=== PATIENT | female | born 1925 | race Caucasian/White ===

== ENCOUNTER 2017-09-23 11:49 | Emergency (ER) | payer MEDICARE, OTHER ==
[~2017-09-23] VITALS: Ht 157.5 cm; Wt 61.4 kg
[2017-09-23 11:52] VITALS: TEMP 98.1
[2017-09-23 12:56] LABS: HEMATOCRIT 44.7 % (37.0-47.0); HEMOGLOBIN 14.3 g/dl (12.5-16.0); MEAN CELL VOLUME 103 fl (80.0-100.0); MEAN CORPUSCULAR HEMOGLOBIN 33 pg (27.0-31.0); MEAN CORPUSCULAR HGB CONC 32 g/dl (33.0-37.0); MEAN PLATELET VOLUME 10.7 fl (7.4-10.4); PLATELET COUNT 205 K/mm3 (130-400); RED BLOOD COUNT 4.35 M/mm3 (4.10-5.30); REDCELL DISTRIBUTION WIDTH-CV 13.9 % (11.5-14.5)
[2017-09-23 13:06] LABS: ALBUMIN 3.8 gm/dL (3.5-5.0); BILIRUBIN,TOTAL 0.7 mg/dL (0.0-1.0); CALCIUM 9.2 mg/dL (8.4-10.2); CREATININE, serum 0.71 mg/dL (0.52-1.25); POTASSIUM 4.2 mmol/L (3.4-5.0); TOTAL PROTEIN 6.6 gm/dL (6.4-8.2)
[2017-09-23 13:11] LABS: BAND 3 % (0-10); LYMPHOCYTE 6 % (20.0-51.0); NEUTROPHILS 86 % (42.0-75.2); PLATELET ESTIMATE NORMAL (NORMAL)
[2017-09-23 13:12] LABS: ANISOCYTOSIS 1+; POLYCHROMASIA 1+
[2017-09-23 13:20] LABS: ERYTHROCYTE SEDIMENTATION RATE 2 mm/hr (0-30)
[2017-09-23] MEDS ORDERED: NORCO 325 MG-51 TAB PO (13:39)
[2017-09-23 14:19] VITALS: BP 142/96; PULSE 88
== END 2017-09-23 14:19 | disposition home or self-care (01) ==
LOC: COL.ER 11:49
PROVIDERS: Family Medicine
DX: G89.29 Other chronic pain (principal); M25.552 Pain in left hip; M35.3 Polymyalgia rheumatica; M19.90 Unspecified osteoarthritis, unspecified site

== ENCOUNTER → 2017-11-26 | Outpatient (CLI) | payer MEDICARE, OTHER ==
[~2017-11-26] MED LIST: NORCO 325 MG-51 TAB PO
== END ==
LOC: COL.RAD 09:39
DX: M99.73 Connective tissue and disc stenosis of intervertebral foramina of lumbar region (principal); M48.061 Spinal stenosis, lumbar region without neurogenic claudication; M47.26 Other spondylosis with radiculopathy, lumbar region; M16.0 Bilateral primary osteoarthritis of hip